=== PATIENT | male | born 1960 | race Caucasian/White ===

== ENCOUNTER 2016-09-04 10:55 | Emergency (ER) | payer OTHER ==
[~2016-09-04] VITALS: Ht 172.7 cm; Wt 82.8 kg
[~2016-09-04 10:55] MED LIST: ASPIRIN E.C.81 M1 PO; AURALGAN14.8 ML LEFT EAR; CORTISPORIN-TC10 M1 LEFT EAR; Duragesic TD; EFFEXOR37.5 MG PO; FLEXERIL10 MG PO; GABAPENTIN600 MG PO; HALFPRIN162 MG PO; LEVAQUIN750 MG PO; LORTAB 5-325 M1 EACH PO; Lopressor PO; MEDROL DOSEPAK4 MG PO; METAXALONE800 MG PO; MORPHINE SULFAT15 M1 PO; Motrin PO; OXYCODONE HCL10 MG PO; OXYCODONE HCL15 MG PO; PERCOCET 10/1 TABLET; PERCOCET 10/1 TABLET PO; PERCOCET 5/31 TABLET PO; PROZAC20 MG PO; TOPROL XL50 MG PO; TRAMADOL HCL50 MG PO; VALIUM5 MG PO; VIBRAMYCIN100 MG PO; ZITHROMAX Z-PA250 MG PO; ZOFRAN4 MG PO; Zocor PO
[2016-09-04 11:42] LABS: HEMATOCRIT 49.7 % (38.0-50.0); MCH 32.2 PG (29.0-34.0); MCHC 36.6 G/DL (30.0-36.0); MEAN PLAT.VOLUME 10.9 uM^3 (9.0-12.4); PLATELET COUNT 192 K/uL (156-360); RBC DIS.WIDTH-CV 12.8 % (11.8-14.6); RBC DIS.WIDTH-SD 40.9 % (39-53); RED BLOOD COUNT 5.65 M/uL (4.00-5.50)
[2016-09-04 11:53] LABS: CHLORIDE 109 mEq/L (99-109); POTASSIUM 4.4 mEq/L (3.7-5.4); SODIUM 134 mEq/L (136-147)
[2016-09-04 11:55] LABS: GLUCOSE 131 mg/dL (70-99)
[2016-09-04 11:57] LABS: ANION GAP 10 MEQ/L (2-14); TOTAL BILIRUBIN 0.5 mg/dL (0.0-1.0)
[2016-09-04 11:59] LABS: ALKALINE PHOSPHATASE 90 IU/L (3-129); GFR ESTIMATE (CALCULATED) > 59 mL/min/
[2016-09-04 12:00] LABS: UREA NITROGEN (BUN) 15 mg/dL (9-23)
[2016-09-04 12:03] LABS: LIPASE 18 U/L (1.0-51.0)
[2016-09-04] MEDS ORDERED: OXYCODONE HCL15 MG PO (15:00)
[2016-09-04] MEDS ORDERED: LYRICA75 MG PO (15:00)
[2016-09-04] MEDS ORDERED: ZOFRAN ODT4 MG PO (15:26)
[2016-09-04 15:34] VITALS: BP 141/84
== END 2016-09-04 15:36 | disposition left against medical advice (07) ==
LOC: EME 10:55
DX: R10.30 Lower abdominal pain, unspecified (principal); R11.10 Vomiting, unspecified; E86.0 Dehydration; Z93.3 Colostomy status; F17.200 Nicotine dependence, unspecified, uncomplicated; Z88.8 Allergy status to other drugs, medicaments and biological substances; J44.9 Chronic obstructive pulmonary disease, unspecified; I10 Essential (primary) hypertension; I25.2 Old myocardial infarction
CPT/HCPCS: 74176; 80053; 81003; 83690; 85027; 99281; 99285; J1170; J2405; J7030

== ENCOUNTER 2016-10-21 13:52 | Inpatient (IN) | payer OTHER ==
[~2016-10-21] VITALS: Ht 147.3 cm; Wt 75.5 kg
[~2016-10-21 13:52] MED LIST changes: +LYRICA75 MG PO; +ZOFRAN ODT4 MG PO
[2016-10-21 15:12] LABS: HEMATOCRIT 48.2 % (38.0-50.0); MCH 30.6 PG (29.0-34.0); MCHC 35.9 G/DL (30.0-36.0); MCV 85.2 FL (86-99); MEAN PLAT.VOLUME 9.9 uM^3 (9.0-12.4); PLATELET COUNT 519 K/uL (156-360); RBC DIS.WIDTH-CV 13.2 % (11.8-14.6); RBC DIS.WIDTH-SD 41.1 % (39-53); RED BLOOD COUNT 5.66 M/uL (4.00-5.50); WHITE BLOOD COUNT 25.4 K/uL (4.1-10.2)
[2016-10-21 15:23] LABS: CHLORIDE 96 mEq/L (99-109); POTASSIUM 5.4 mEq/L (3.7-5.4); SODIUM 127 mEq/L (136-147)
[2016-10-21 15:24] LABS: GLUCOSE 115 mg/dL (70-99)
[2016-10-21 15:26] LABS: ANION GAP 11 MEQ/L (2-14)
[2016-10-21 15:28] LABS: GFR ESTIMATE (CALCULATED) > 59 mL/min/
[2016-10-21 15:29] LABS: UREA NITROGEN (BUN) 29 mg/dL (9-23)
[2016-10-21] MEDS ORDERED: OXYCODONE HCL30 MG PO (16:30)
[2016-10-21] MEDS ORDERED: VALIUM5 MG PO (16:31)
[2016-10-21 23:53] VITALS: BP 89/62
[2016-10-22 07:17] LABS: ANION GAP 8 MEQ/L (2-14); CHLORIDE 101 MEQ/L (99-109); GFR ESTIMATE (CALCULATED) > 59 mL/min/; GLUCOSE 104 mg/dL (70-99); POTASSIUM 4.8 MEQ/L (3.7-5.4); SAMPLE HEMOLYSIS CHECK 0; SAMPLE ICTERIC CHECK 0; SAMPLE LIPEMIA CHECK 0; SODIUM 132 MEQ/L (136-147); UREA NITROGEN (BUN) 23 mg/dL (9-23)
[2016-10-22 07:26] LABS: EOSINOPHIL (%) 0.1 % (0-5); HEMATOCRIT 42.8 % (38.0-50.0); IMMATURE GRANULOCYTE (%) 2.2 % (0.0-0.7); IMMATURE GRANULOCYTE COUNT 0.4 K/uL; LYMPHOCYTE COUNT 1.7 K/uL (1.0-2.8); MCH 29.9 PG (29.0-34.0); MCHC 33.2 G/DL (30.0-36.0); MONOCYTE (%) 7.1 % (3-12); MONOCYTE COUNT 1.3 K/uL (0-0.8); NEUTROPHIL (%) 80.9 % (45-76); NEUTROPHIL COUNT 14.3 K/uL (1.8-6.4); RBC DIS.WIDTH-CV 13.5 % (11.8-14.6); RBC DIS.WIDTH-SD 44.1 % (39-53); RED BLOOD COUNT 4.75 M/uL (4.00-5.50)
[2016-10-22 07:27] LABS: MCV 90.1 FL (86-99); WHITE BLOOD COUNT 17.7 K/uL (4.1-10.2)
[2016-10-22 07:56] VITALS: BP 109/56
[2016-10-22 08:43] LABS: HEMATOLOGY COMMENT 1 SMEAR COMPATIBLE; PLAT.SUFFICIENCY INCREASED; PLATELET CLUMPS PRESENT
[2016-10-22 09:02] LABS: PLATELET COUNT UNABLE TO REPORT K/uL (156-360)
[2016-10-22 15:00] VITALS: BP 102/56
[2016-10-22 23:32] VITALS: BP 105/54
[2016-10-23 07:45] VITALS: BP 116/78
[2016-10-23 08:46] LABS: EOSINOPHIL (%) 0.1 % (0-5); HEMATOCRIT 38.5 % (38.0-50.0); IMMATURE GRANULOCYTE COUNT 0.4 K/uL; LYMPHOCYTE COUNT 1.1 K/uL (1.0-2.8); MCH 30.2 PG (29.0-34.0); MCHC 33.5 G/DL (30.0-36.0); MCV 90.2 FL (86-99); MONOCYTE (%) 8.8 % (3-12); MONOCYTE COUNT 1.5 K/uL (0-0.8); NEUTROPHIL (%) 82.5 % (45-76); NEUTROPHIL COUNT 14.4 K/uL (1.8-6.4); RBC DIS.WIDTH-CV 13.5 % (11.8-14.6); RBC DIS.WIDTH-SD 44.4 % (39-53); RED BLOOD COUNT 4.27 M/uL (4.00-5.50); WHITE BLOOD COUNT 17.4 K/uL (4.1-10.2)
[2016-10-23 09:19] LABS: ANION GAP 9 MEQ/L (2-14); CHLORIDE 101 MEQ/L (99-109); GFR ESTIMATE (CALCULATED) > 59 mL/min/; GLUCOSE 112 mg/dL (70-99); POTASSIUM 4.2 MEQ/L (3.7-5.4); SAMPLE HEMOLYSIS CHECK 0; SAMPLE ICTERIC CHECK 0; SAMPLE LIPEMIA CHECK 0; SODIUM 132 MEQ/L (136-147); UREA NITROGEN (BUN) 11 mg/dL (9-23)
[2016-10-23 09:43] LABS: MEAN PLAT.VOLUME 9.9 uM^3 (9.0-12.4); PLAT.SUFFICIENCY ADEQUATE; PLATELET COUNT 298 K/uL (156-360); USER ID CL
[2016-10-23 11:13] LABS: HIV INDEX 0.13; HIV-1/2 AB/AG COMBO Nonreactive
[2016-10-23 11:15] LABS: HPCA INDEX 12.45
[2016-10-23 14:59] VITALS: BP 120/78
[2016-10-24] VITALS: BP 110/74
[2016-10-24 07:31] VITALS: BP 106/61
[2016-10-24 08:57] LABS: HEMATOCRIT 34.9 % (38.0-50.0); MCH 30.7 PG (29.0-34.0); MCHC 34.1 G/DL (30.0-36.0); MCV 90.2 FL (86-99); MEAN PLAT.VOLUME 9.7 uM^3 (9.0-12.4); PLATELET COUNT 237 K/uL (156-360); RBC DIS.WIDTH-CV 13.3 % (11.8-14.6); RED BLOOD COUNT 3.87 M/uL (4.00-5.50); WHITE BLOOD COUNT 12.8 K/uL (4.1-10.2)
[2016-10-24 09:12] LABS: EOSINOPHIL (%) 0.7 % (0-5); EOSINOPHIL COUNT 0.1 K/uL (0-0.3); IMMATURE GRANULOCYTE (%) 1.2 % (0.0-0.7); IMMATURE GRANULOCYTE COUNT 0.2 K/uL; LYMPHOCYTE COUNT 1.2 K/uL (1.0-2.8); MONOCYTE COUNT 0.8 K/uL (0-0.8); NEUTROPHIL (%) 82.5 % (45-76); NEUTROPHIL COUNT 10.5 K/uL (1.8-6.4)
[2016-10-24 09:21] LABS: ANION GAP 7 MEQ/L (2-14); CHLORIDE 101 MEQ/L (99-109); GFR ESTIMATE (CALCULATED) > 59 mL/min/; GLUCOSE 108 mg/dL (70-99); POTASSIUM 3.6 MEQ/L (3.7-5.4); SAMPLE HEMOLYSIS CHECK 0; SAMPLE ICTERIC CHECK 0; SAMPLE LIPEMIA CHECK 0; SODIUM 135 MEQ/L (136-147); UREA NITROGEN (BUN) 9 mg/dL (9-23)
[2016-10-24 14:59] VITALS: BP 109/63
[2016-10-25 00:09] VITALS: BP 96/50
[2016-10-25 06:54] LABS: HEMATOCRIT 37.7 % (38.0-50.0); MCH 30.3 PG (29.0-34.0); MCHC 32.6 G/DL (30.0-36.0); MCV 92.9 FL (86-99); MEAN PLAT.VOLUME 9.5 uM^3 (9.0-12.4); PLATELET COUNT 260 K/uL (156-360); RBC DIS.WIDTH-CV 13.1 % (11.8-14.6); RBC DIS.WIDTH-SD 44.2 % (39-53); RED BLOOD COUNT 4.06 M/uL (4.00-5.50); WHITE BLOOD COUNT 11.8 K/uL (4.1-10.2)
[2016-10-25 07:18] LABS: ANION GAP 8 MEQ/L (2-14); CHLORIDE 99 MEQ/L (99-109); GFR ESTIMATE (CALCULATED) > 59 mL/min/; GLUCOSE 91 mg/dL (70-99); POTASSIUM 4.3 MEQ/L (3.7-5.4); SAMPLE HEMOLYSIS CHECK 0; SAMPLE ICTERIC CHECK 0; SAMPLE LIPEMIA CHECK 0; SODIUM 135 MEQ/L (136-147); UREA NITROGEN (BUN) 7 mg/dL (9-23)
[2016-10-25 08:00] VITALS: BP 102/62
[2016-10-25 11:24] VITALS: BP 96/54
[2016-10-25 23:55] VITALS: BP 107/66
[2016-10-26 02:11] LABS: QGTB-NIL 0.04 IU/mL (()); TB AG-NIL 0.02 IU/mL (())
[2016-10-26 07:26] VITALS: BP 105/65
[2016-10-26 15:24] VITALS: BP 114/67
[2016-10-27 00:12] VITALS: BP 108/65
[2016-10-27 07:43] VITALS: BP 113/65
[2016-10-27] MEDS ORDERED: CLINDAMYCIN HC300 MG PO (14:58)
[2016-10-27] MEDS ORDERED: SPIRIVA RESPIMAT4 GM IH (15:39)
[2016-10-27] MEDS ORDERED: VENTOLIN HFA18 GM IH (15:39)
[2016-10-27] MEDS ORDERED: ADVAIR HFA120 INHALA IH (15:39)
== END 2016-10-27 15:48 | disposition home or self-care (01) | DRG 871 ==
LOC: EME 13:52 → 5SOUTH 16:10 → EDOF 16:10 → 5SOUTH 22:46
PROVIDERS: Hospitalist; Internal Medicine Infectious Disease; Nurse Practitioner Adult Health; Physician Assistant Medical
DX: A41.9 Sepsis, unspecified organism (principal); J15.9 Unspecified bacterial pneumonia; J85.1 Abscess of lung with pneumonia; J44.1 Chronic obstructive pulmonary disease with (acute) exacerbation; F11.20 Opioid dependence, uncomplicated; R04.2 Hemoptysis; E87.1 Hypo-osmolality and hyponatremia; F33.9 Major depressive disorder, recurrent, unspecified; R63.4 Abnormal weight loss; R91.8 Other nonspecific abnormal finding of lung field; J98.4 Other disorders of lung; F17.210 Nicotine dependence, cigarettes, uncomplicated; G89.29 Other chronic pain; F10.20 Alcohol dependence, uncomplicated; B18.2 Chronic viral hepatitis C; F19.10 Other psychoactive substance abuse, uncomplicated; F60.9 Personality disorder, unspecified; F41.9 Anxiety disorder, unspecified; Z93.3 Colostomy status; Z68.34 Body mass index [BMI] 34.0-34.9, adult; Z91.19 Patient's noncompliance with other medical treatment and regimen; Z90.49 Acquired absence of other specified parts of digestive tract; Z56.0 Unemployment, unspecified; Z59.0 Homelessness; Z81.8 Family history of other mental and behavioral disorders
CPT/HCPCS: 71010; 71020; 71250; 80048; 80202; 83605; 85025; 85027; 86480 90; 86703; 86803; 87040; 87070; 87116; 87205; 87206; 87340; 87801; 94640; 94640 76; 99202; 99281; 99285; J1650; J2543; J3370; J7030; J7050

== ENCOUNTER 2016-11-02 04:24 | Emergency (ER) | payer OTHER ==
[~2016-11-02] VITALS: Ht 172.7 cm; Wt 74.2 kg
[~2016-11-02 04:24] MED LIST changes: +ADVAIR HFA120 INHALA IH; +CLINDAMYCIN HC300 MG PO; +OXYCODONE HCL30 MG PO; +SPIRIVA RESPIMAT4 GM IH; +VENTOLIN HFA18 GM IH
[2016-11-02 04:26] VITALS: BP 105/90
== END 2016-11-02 05:59 | disposition home or self-care (01) ==
LOC: EME 04:24
DX: J44.1 Chronic obstructive pulmonary disease with (acute) exacerbation (principal); F10.229 Alcohol dependence with intoxication, unspecified; G89.29 Other chronic pain; F17.200 Nicotine dependence, unspecified, uncomplicated
CPT/HCPCS: 94640; 99281; 99284

== ENCOUNTER 2017-02-11 13:26 | Emergency (ER) | payer OTHER ==
[~2017-02-11] VITALS: Ht 172.7 cm; Wt 84.1 kg
[2017-02-11] MEDS ORDERED: FLEXERIL10 MG PO (16:34)
[2017-02-11] MEDS ORDERED: PREDNISONE10 MG PO (16:34)
[2017-02-11 17:04] VITALS: BP 125/89
== END 2017-02-11 17:05 | disposition home or self-care (01) ==
LOC: EME 13:26
DX: M54.12 Radiculopathy, cervical region (principal); M62.838 Other muscle spasm; W01.0XXA Fall on same level from slipping, tripping and stumbling without subsequent striking against object, initial encounter; F17.200 Nicotine dependence, unspecified, uncomplicated; Z93.3 Colostomy status
CPT/HCPCS: 72040; 99281; 99283